=== PATIENT | female | born 2000 | race Caucasian/White ===

== ENCOUNTER 2025-01-28 20:47 | Emergency (ER) | payer BC ==
[~2025-01-28] VITALS: Ht 180.3 cm; Wt 75.0 kg
[2025-01-28 20:49] VITALS: BP 135/89; PULSE 82; RESP 14; TEMP 98.2; O2SAT 99
[2025-01-28] MEDS: SODIUM CHLORIDE 0.9% 1,000 ML IV ONE (22:09)
[2025-01-28 22:20] LABS: PLATELET COUNT (AUTO) 333 K/uL (150-450); RED BLOOD CELL COUNT(AUTO) 5.17 MIL/uL (4.00-5.20); RED CELL DISTRIBUTION WIDTH 13.1 % (11.5-14.5); WHITE BLOOD COUNT (AUTO) 9.9 K/uL (4.5-11.0)
[2025-01-28 22:25] LABS: CALCIUM, TOTAL 9.2 mg/dL (8.8-10.5); CREATININE 0.92 mg/dL (0.60-1.30); GLOMERULAR FILTR. RATE CALC > 60 mL/min (>60); GLUCOSE,RANDOM 89 mg/dL (70-110); SODIUM SERUM 139 mmol/L (136-145); UREA NITROGEN, BLOOD 14 mg/dL (7-18)
[2025-01-28 22:37] LABS: ASPARTATE AMINOTRANSFERASE 18 U/L (15-37); HCG,QUANTITATIVE < 1 mIU/mL (0-6); TOTAL PROTEIN, SERUM 7.7 g/dL (6.4-8.2)
[2025-01-28 23:18] LABS: APPEARANCE,URINE TURBID (CLEAR); GLUCOSE, URINE (UA) NEGATIVE (NEGATIVE); LEUKOCYTE ESTERASE ,URINE NEGATIVE (NEGATIVE); NITRATE,URINE NEGATIVE (NEGATIVE); OCCULT BLOOD,URINE NEGATIVE (NEGATIVE); SPECIFIC GRAVITIY, URINE 1.022 (1.003-1.030)
== END 2025-01-29 00:51 | disposition home or self-care (01) ==
LOC: EMS 20:50
DX: R00.2 Palpitations (principal); R53.1 Weakness; R42 Dizziness and giddiness
CPT/HCPCS: 80048; 80076; 81003; 84702; 85025; 93005; 99284